=== PATIENT | male | born 1990 | race African-American/Black ===

== ENCOUNTER 2019-12-17 20:57 | Emergency (ER) | payer SELFPAY ==
[~2019-12-17] VITALS: Ht 162.6 cm; Wt 95.0 kg
[2019-12-17] MEDS ORDERED: HYDROCODONE/ACETAMINOPHEN 5/325MG TABLET PO ONE (22:45)
[2019-12-17] MEDS ORDERED: KETOROLAC 60MG/2ML VIAL IM ONE (22:45)
[2019-12-18 00:37] VITALS: BP 103/68
== END 2019-12-18 00:40 | disposition home or self-care (01) ==
LOC: ER 20:57
DX: L03.032 Cellulitis of left toe (principal); F14.10 Cocaine abuse, uncomplicated
CPT/HCPCS: 73660; 96372; 99283; J1885